=== PATIENT | female | born 1980 | race Caucasian/White ===

== ENCOUNTER 2017-03-11 13:47 | Emergency (ER) | payer MEDICAID ==
--- NOTE | 2017-03-11 14:07 | Emergency Department Record ---
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 After about one week she began to notice right sided abdominal pain with hives. NO fevers or chills. She has had decreased appetite. She stopped the [place] as she thinks this is the cause of her hives. Her last dose was 3 days ago. Her pain has continued. No dysuria. She was seen in the ER [facility]. Labs were performed and UA. WBC count is 14. The STRIP TANK TENDER Surgeon was not contacted. The patient has not had a follow up yet. MD Complaint: Abdominal Pain -: Week(s) (1) Improves with: Nothing Worsens with: Nothing Associated Symptoms: Denies other symptoms - Related Data Previous Rx's Medication Instructions Recorded Clindamycin HCl 300 mg PO QID #28 capsule 03/11/17 Tramadol HCl 50 mg PO Q6H #20 tab 03/11/17 Allergies Allergy/AdvReac Type Severity Reaction Status Date / Time gabapentin Allergy Intermediate RASH Verified 03/11/17 14:22 hydrocodone bitartrate Allergy rash Verified 03/11/17 14:22 [From [place]] Review of Systems Constitutional: Denies: Chills, Fever, Malaise, Weakness, Weight change Eyes: Denies: Eye discharge, Eye pain, Photophobia ENT: Denies: Congestion, Throat pain Respiratory: Denies: Cough, Dyspnea Cardiovascular: Denies: Chest pain, Palpitations, Syncope Endocrine: Denies: Fatigue Gastrointestinal: Reports: Abdominal pain, Nausea, Vomiting. Denies: Diarrhea, Hematemesis, Hematochezia, Melena Genitourinary: Denies: Dyspareunia, Dysuria, Urgency Musculoskeletal: Denies: Arthralgia, Back pain, Myalgia, Neck pain Skin: Denies: Bruising, Change in color, Rash Neurological: Denies: Headache, Numbness, Weakness Psychiatric: Denies: Anxiety Hematological/Lymphatic: Denies: Blood Clots, Easy bleeding, Easy bruising, Swollen glands Physical Exam - General General Appearance: Alert, Oriented x3, Cooperative, No acute distress Limitations: No limitations - Head Head exam: Normal inspection - Eye Eye exam: Normal appearance, PERRL. negative: Conjunctival injection, Periorbital swelling - ENT ENT exam: Normal exam, Mucous membranes moist Ear exam: Normal external inspection Nasal Exam: Normal inspection Mouth exam: Normal external inspection - Neck Neck exam: Normal inspection, Full ROM. negative: Tenderness - Respiratory Respiratory exam: Normal lung sounds bilaterally. negative: Respiratory distress - Cardiovascular Cardiovascular Exam: Regular rate, Normal rhythm, Normal heart sounds Peripheral Pulses: 2+: Radial (R), Radial (L) - GI/Abdominal GI/Abdominal exam: Soft, Hypoactive bowel sounds, Tenderness (Tenderness RUQ to RLQ ). negative: Distended, Guarding - Rectal Rectal exam: Deferred - exam: Deferred - Extremities Extremities exam: Normal inspection, Full ROM, Normal capillary refill. negative: Pedal edema, Tenderness - Back Back exam: Reports: Normal inspection, Full ROM. Denies: Muscle spasm, Rash noted, Tenderness - Neurological Neurological exam: Alert, Normal gait, Oriented X3 - Psychiatric Psychiatric exam: Normal affect, Normal mood - Skin Skin exam: Dry, Intact, Normal color, Warm Course - Reevaluation(s) Reevaluation #1: 03/11/17 15:40 The labs from the [facility] were reviewed WBC count was 13 Mild increase in ALT and AST with normal Bili and Alk Phos Lipase is normal 03/11/17 16:[address] scan of the abdomen and pelvis were reviewed. The report from radiology included a 12mm small fluid collection in the subcutaneousl tissue could be post operative in nature and not entirely exclude abscess, NO intra abdominal process. No free fluid or free air, the ovaries are normal, the appendix is normal, the endometrium is upper limits of normal. The patient was informed of the CT We discussed close follow up with her surgeon The surgical site appears normal on inspection without signs of infection - no warmth or swelling. She is mildly point tender at that site. With the elevated WBC count and CT findins she will be placed on antibiotics. We discussed at length that if the site swells, becomes warm or red she is to immediately discuss this with her surgeon and return to the ED 03/11/17 17:30 A message was left for Dr Kowalski to call the ED to update her on the case. Reevaluation #2: Dr Kowalski called back We discussed the CT scan The patient will follow up in the office 03/11/17 18:33 Disposition Disposition: Discharge Clinical Impression: Hives Abdominal pain Qualifiers: Abdominal location: unspecified location Qualified Code(s): R10.9 - Unspecified abdominal pain Disposition: Home, Self-Care Condition: (1) Good Instructions: Abscess (ED) Additional Instructions: Return immediately if you have fever, swelling, pain, vomiting or any new concerns Take the antibiotics every 6 hours Call your STRIP TANK TENDER Dr Kowalski tomorrow for follow up this week of the area. Prescriptions: Clindamycin HCl 300 mg PO QID #28 capsule Tramadol HCl 50 mg PO Q6H #20 tab Forms: Patient Portal Access Time of Disposition: 16:57 Quality - Quality Measures Quality Measures: N/A - Blood Pressure Screening Does Patient Have Any of the Following: No Blood Pressure Classification: Hypertensive Reading Systolic Measurement: 149 Diastolic Measurement: 91 Screening for High Blood Pressure: < Pre-Hypertensive BP, F/U Documented > [ [id number]] Pre-Hypertensive Follow-up Interventions: Referral to alternative/primary care provider.
[2017-03-11] MEDS ORDERED: DIPHENHYDRAMINE HCL IV 50 MG/ML VIAL IVP ONE ×2 (14:09→15:40)
[2017-03-11] MEDS ORDERED: ACETAMINOPHEN 1,000 MG/100 ML BTL IVPB ONE (14:09)
[2017-03-11] MEDS ORDERED: 0.9 % SODIUM CHLORIDE 1,000 ML BAG IV ONE (15:40)
[2017-03-11] MEDS ORDERED: CLINDAMYCIN 150 MG CAP PO ONE (16:56)
[2017-03-11] MEDS ORDERED: TRAMADOL HCL 50 MG TABLET PO ONE (17:20)
--- NOTE | 2017-03-12 09:09 | CT SCAN REPORT ---
EXAM: CT OF THE ABDOMEN AND PELVIS WITH CONTRAST HISTORY: POST OP PAIN, HAD TUBAL LIGATION AND ABLATION TWO WEEKS AGO, NOW RIGHT SIDED ABDOMINAL PAIN AND NAUSEA. TECHNIQUE: Axial CT scan of the abdomen and pelvis was performed utilizing both oral and IV contrast, with a dose of 100 ml of Omnipaque 300 for the IV contrast. Comparison: CT abdomen and pelvis 12/03/13. FINDINGS: No calcified gallstones are seen within the gallbladder. No definite hepatic, splenic, adrenal, pancreatic, or renal mass identified. The uterus is tilted towards the left. The ovaries appear of normal size measuring about 3.6 cm on the right and 2.8 cm on the left. Oral contrast given has passed throughout the small bowel well into the colon with no small bowel obstruction evident. The appendix is visualized and appears negative with no appendicitis evident. The region of the endometrium measures 1.3 cm in thickness, near the upper end of the normal range for the secretory phase of the menstrual cycle. The lung bases appear clear. No free intraperitoneal air or free intraperitoneal fluid evident. There is a small amount of hazy density in the subcutaneous adipose tissue just deep to the umbilicus probably with a very small fluid collection approximately 12 mm in size. This may just be related to the recent surgery and represent a sterile postop fluid collection although a small developing subcutaneous abscess would be difficult to exclude. Correlation with physical exam suggested. This is new compared with the prior 12/03/13 CT. IMPRESSION: 1. HISTORY OF RECENT TUBAL LIGATION AND ABLATION. THERE IS A SMALL FLUID COLLECTION ONLY ABOUT 12 MM IN SIZE IN THE SUBCUTANEOUS TISSUES JUST INFERIOR TO THE UMBILICUS IN THE ANTERIOR ABDOMINAL WALL WHICH MAY BE POSTOPERATIVE IN NATURE AND CORRELATION WITH THE PRIOR PROCEDURE IS SUGGESTED. A SMALL ABSCESS CANNOT BE EXCLUDED IN THIS LOCATION. 2. THE ENDOMETRIAL THICKNESS IS AT ABOUT THE UPPER LIMITS OF NORMAL. THE OVARIES APPEAR OF NORMAL SIZE. 3. THE APPENDIX APPEARS NEGATIVE. NO FREE AIR OR FREE FLUID EVIDENT. JOB NUMBER: [id number] [facility]
== END 2017-03-11 17:35 | disposition home or self-care (01) ==
LOC: ER 13:47
DX: G89.18 Other acute postprocedural pain (principal); R10.84 Generalized abdominal pain; L50.9 Urticaria, unspecified; R11.0 Nausea
CPT/HCPCS: 99284 ×2; 96376; 96374; 96375; 83690; 80053; 85027; 74020; 74177; Q9967; J1200; J7030